=== PATIENT | male | born 1995 | race Two or more races ===

== ENCOUNTER 2022-03-22 17:48 | Emergency (ER) | payer MEDICAID ==
[~2022-03-22] VITALS: Ht 175.3 cm; Wt 117.9 kg
[2022-03-22 19:26] LABS: Urine Bacteria NONE SEEN /hpf (None Seen); Urine Blood Negative /uL (Negative); Urine Mucus FEW (None Seen); Urine Specific Gravity 1.028 (1.001-1.035); Urine WBC 4 /hpf (0 - 3)
[2022-03-22 19:44] LABS: Basophils # (auto) 0 10 ^3/uL (0-0.2); Basophils % (auto) 0.4 % (0.0-2.0); Eosinophils # (auto) 0 10 ^3/uL (0-0.8); Eosinophils % (auto) 0.3 % (0.0-7.0); Hematocrit 42.4 % (41.0-53.0); Lymphocytes # (auto) 1.6 10 ^3/uL (0.4-5.4); Lymphocytes % (auto) 14.6 % (10.0-50.0); Mean Corpuscular Hemoglobin 29.6 pg (28.0-32.0); Mean Corpuscular Hgb Conc. 33.1 g/dL (32.0-36.0); Mean Corpuscular Volume 89.3 fL (80.0-100.0); Monocytes # (auto) 0.5 10 ^3/uL (0-1.3); Monocytes % (auto) 4.3 % (0.0-12.0); Neutrophils # (auto) 8.6 10 ^3/uL (1.6-8.6); Neutrophils % (auto) 80.4 % (37.0-80.0); Nucleated Red Blood Cells % 0.1 %; Red Blood Cells 4.75 10^6/uL (4.5-5.90); Red Cell Distribution Width 13.7 % (11.8-14.3); White Blood Cell 10.7 10^3/uL (4.4-10.8)
[2022-03-22 20:09] LABS: Calcium 8.1 mg/dL (8.5-10.1)
[2022-03-22 20:13] LABS: BUN/Creatinine Ratio 20.9; Bilirubin, Total 0.6 mg/dL (0.2-1.0); Total Protein 7.3 g/dL (6.4-8.2)
[2022-03-22 21:59] VITALS: BP 144/90
== END 2022-03-22 22:02 | disposition home or self-care (01) ==
LOC: ER 17:48
DX: R07.81 Pleurodynia (principal)
CPT/HCPCS: 36415; 71111; 74176; 80053; 81001; 83690; 85025

== ENCOUNTER 2023-10-09 14:00 | Emergency (ER) | payer MEDICAID ==
[~2023-10-09] VITALS: Ht 175.3 cm; Wt 100.0 kg
[2023-10-09 14:39] VITALS: BP 124/71; PULSE 80; RESP 18; TEMP 98.1; O2SAT 96
[2023-10-09] MEDS ORDERED: IBUP-1456 PO (15:10)
== END 2023-10-09 15:26 | disposition home or self-care (01) ==
LOC: ER 14:00
DX: S29.011A Strain of muscle and tendon of front wall of thorax, initial encounter (principal); Z79.1 Long term (current) use of non-steroidal anti-inflammatories (NSAID); X50.1XXA Overexertion from prolonged static or awkward postures, initial encounter; Y93.89 Activity, other specified; Y92.89 Other specified places as the place of occurrence of the external cause; Y99.8 Other external cause status
CPT/HCPCS: 71046